=== PATIENT | male | born 1995 | race Two or more races ===

== ENCOUNTER 2022-03-18 13:28 | Outpatient (CLI) | payer MEDICAID | END 2022-03-18 23:59 | disposition home or self-care (01) | LOC: LAB 13:28 | PROVIDERS: ATTEND Student in an Organized Health Care Education/Training Program | DX: Z01.812 Encounter for preprocedural laboratory examination (principal); Z20.822 Contact with and (suspected) exposure to COVID-19 | CPT/HCPCS: U0003; C9803 ==